=== PATIENT | female | born 1995 | race African-American/Black ===

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

== ENCOUNTER 2017-09-03 22:27 | Emergency (ER) | payer OTHER ==
[~2017-09-03] VITALS: Ht 165.1 cm; Wt 75.0 kg
[~2017-09-03 22:27] MED LIST: IBUP1TAB7 PO
[2017-09-03 22:28] VITALS: BP 127/76; PULSE 87; RESP 16; TEMP 98.2; O2SAT 98
[2017-09-04] MEDS ORDERED: IBUPROFEN 600 MG TAB PO ONE
--- NOTE | 2017-09-04 00:01 | RADRPT ---
EXAM DATE/TIME: 09/03/2017 23:51 [facility] COMPARISON: No previous studies available for comparison. INDICATIONS : Left sided chest pain MEDICAL HISTORY : None. SURGICAL HISTORY : None. ENCOUNTER: Initial ACUITY: 1 day PAIN SCORE: 7/10 LOCATION: Bilateral chest FINDINGS: A single view of the chest demonstrates the lungs to be symmetrically aerated without evidence of mas s, infiltrate or effusion. The cardiomediastinal contours are unremarkable. Osseous structures are intact. CONCLUSION: 1. No acute cardiopulmonary disease. Vahid Killian MD on September 03, 2017 at 23:59 Board Certified Radiologist. This report was verified electronically.
--- NOTE | 2017-09-04 00:08 | PD ---
HPI Chief Complaint: Chest Pain Time Seen by Provider: 23:44 Travel History International Travel<30 days: No Contact w/Intl Traveler<30days: No Traveled to known affect area: No History of Present Illness HPI 21yo F with no significant PMH presents to the ED with c/o left sided chest pain since 9:30pm today. Said she has been having intermittent chest pain for 1 year. Pain is crushing and constant, worst when you press on it. Denies any fever, sob, n/v, abdominal pain, focal weakness or numbness. Denies any drugs or cig smoking. Said she has been to multiple EDs before for this and they cannot find out what is wrong with her. Said her grandmother dies in late 40s or early 50s from heart problem. PFSH Past Medical History Medical History: Denies Significant Hx Diminished Hearing: No Immunizations Current: Yes ?: Unknown Past Surgical History Surgical History: No Previous Surgery Social History Alcohol Use: Yes (SOCIALLY) Tobacco Use: No Substance Use: No Allergies-Medications (Allergen,Severity, Reaction): Coded Allergies: No Known Allergies (Unverified Adverse Reaction, Unknown, 09/03/17) Reported Meds & Prescriptions Reported Meds & Active Scripts Active No Active Prescriptions or Reported Medications Review of Systems Except as stated in HPI: all other systems reviewed are Neg Physical Exam Narrative GENERAL: 21yo F not in distress. SKIN: Focused skin assessment warm/dry. HEAD: Atraumatic. Normocephalic. EYES: Pupils equal and round. No scleral icterus. No injection or drainage. ENT: No nasal bleeding or discharge. Mucous membranes pink and moist. NECK: Trachea midline. No JVD. CARDIOVASCULAR: Regular rate and rhythm. No murmur appreciated. RESPIRATORY: No accessory muscle use. Clear to auscultation. Breath sounds equal bilaterally. CHEST WALL: +TTP left chest. No rash. GASTROINTESTINAL: Abdomen soft, non-tender, nondistended. MUSCULOSKELETAL: No obvious deformities. No clubbing. No cyanosis. No edema. NEUROLOGICAL: Awake and alert. No obvious cranial nerve deficits. Motor grossly within normal limits. Normal speech. PSYCHIATRIC: Appropriate mood and affect; insight and judgment normal. Data Data Last Documented VS Vital Signs Date Time Temp Pulse Resp B/P (MAP) Pulse Ox O2 Delivery O2 Flow Rate FiO2 09/04/17 00:13 75 16 106/67 (80) 99 Room Air 09/03/17 22:28 98.2 Orders Orders Electrocardiogram (09/03/17 ) Complete Blood Count With Diff (09/03/17 23:36) Chest, Single Ap (09/03/17 ) Ed Urine Pregnancytest Poc (09/03/17 23:36) Iv Access Insert/Monitor (09/03/17 23:36) Ecg Monitoring (09/03/17 23:36) Thyroid Stimulating Hormone (09/03/17 23:44) Troponin I (09/03/17 23:44) Ibuprofen (Motrin) (09/04/17 00:00) Comprehensive Metabolic Panel (09/03/17 23:35) Labs Laboratory Tests Test 09/03/17 23:35 White Blood Count 13.2 TH/MM3 Red Blood Count 5.05 MIL/MM3 Hemoglobin 13.5 GM/DL Hematocrit 40.1 % Mean Corpuscular Volume 79.5 FL Mean Corpuscular Hemoglobin 26.7 PG Mean Corpuscular Hemoglobin Concent 33.5 % Red Cell Distribution Width 14.2 % Platelet Count 277 TH/MM3 Mean Platelet Volume 9.6 FL Neutrophils (%) (Auto) 64.8 % Lymphocytes (%) (Auto) 25.6 % Monocytes (%) (Auto) 7.1 % Eosinophils (%) (Auto) 1.3 % Basophils (%) (Auto) 1.2 % Neutrophils # (Auto) 8.6 TH/MM3 Lymphocytes # (Auto) 3.4 TH/MM3 Monocytes # (Auto) 0.9 TH/MM3 Eosinophils # (Auto) 0.2 TH/MM3 Basophils # (Auto) 0.2 TH/MM3 CBC Comment DIFF FINAL Differential Comment Blood Urea Nitrogen 9 MG/DL Creatinine 0.82 MG/DL Random Glucose 91 MG/DL Total Protein 7.9 GM/DL Albumin 3.8 GM/DL Calcium Level 8.5 MG/DL Alkaline Phosphatase 80 U/L Aspartate Amino Transf (AST/SGOT) 17 U/L Alanine Aminotransferase (ALT/SGPT) 20 U/L Total Bilirubin 0.4 MG/DL Sodium Level 140 MEQ/L Potassium Level 3.4 MEQ/L Chloride Level 108 MEQ/L Carbon Dioxide Level 26.5 MEQ/L Anion Gap 6 MEQ/L Estimat Glomerular Filtration Rate 109 ML/MIN Troponin I LESS THAN 0.02 NG/ML Thyroid Stimulating Hormone 3rd Gen 0.955 uIU/ML [facility] Medical Decision Making Medical Screen Exam Complete: Yes Emergency Medical Condition: Yes Interpretation(s) EKG: NSR 72bpm. Normal axis. LVH. No ST segment elevation or depression. TWI III, V2. Differential Diagnosis Anxiety vs. musculoskeletal pain vs. GERD Narrative Course 21yo F with atypical chest pain. Labs reviewed, WBC 13.2. Normal H/H. Troponin negative. TSH normal. CXR negative. Vital signs normal. Pt given ibuprofen which helped with pain. Pt has been having this pain for 1 year with multiple negative work ups. Will have pt follow up as outpatient. Return precautions given. Diagnosis Primary Impression: Atypical chest pain Patient Instructions: General Instructions Departure Forms: Tests/Procedures Additional Instructions: Please follow up with your primary care physician in 3-7 days. Return precautions given. Med/Other Pt SpecificInfo: Prescription(s) given Scripts Ibuprofen (Ibuprofen) 400 Mg Tab 400 MG PO Q8H Y for PAIN SCALE 1 TO 4, #20 TAB 0 Refills Prov: Emerita Castanon DO 09/04/17 Disposition: 01 DISCHARGE HOME Condition: Stable Emerita Castanon DO Sep 04, 2017 00:08
[2017-09-04 00:13] VITALS: BP 106/67; PULSE 75; RESP 16; O2SAT 99
[2017-09-04 00:22] LABS: AUTOMATED NEUTROPHIL # 8.6 TH/MM3 (1.8-7.7); BASOPHIL # 0.2 TH/MM3 (0-0.2); BASOPHIL % 1.2 % (0.0-2.0); EOSINOPHIL # 0.2 TH/MM3 (0-0.4); EOSINOPHIL % 1.3 % (0.0-4.0); HEMATOCRIT 40.1 % (35.0-46.0); HEMOGLOBIN 13.5 GM/DL (11.6-15.3); LYMPH % 25.6 % (9.0-44.0); LYMPHOCYTE # 3.4 TH/MM3 (1.0-4.8); MEAN CELL VOLUME 79.5 FL (80.0-100.0); MEAN CORPUSCULAR HEMOGLOBIN 26.7 PG (27.0-34.0); MEAN CORPUSCULAR HGB CONC 33.5 % (32.0-36.0); MEAN PLATELET VOLUME 9.6 FL (7.0-11.0); MONO % 7.1 % (0.0-8.0); MONOCYTE # 0.9 TH/MM3 (0-0.9); NEUT % 64.8 % (16.0-70.0); PLATELET COUNT 277 TH/MM3 (150-450); RED BLOOD COUNT 5.05 MIL/MM3 (4.00-5.30); RED CELL DISTRIBUTION WIDTH 14.2 % (11.6-17.2); WHITE BLOOD COUNT 13.2 TH/MM3 (4.0-11.0)
[2017-09-04 00:41] LABS: ALKALINE PHOSPHATASE 80 U/L (45-117); TOTAL BILIRUBIN ADULT 0.4 MG/DL (0.2-1.0); TOTAL PROTEIN 7.9 GM/DL (6.4-8.2); TROPONIN I LESS THAN 0.02 NG/ML (0.02-0.05)
[2017-09-04 00:43] LABS: ALBUMIN 3.8 GM/DL (3.4-5.0); ALT (GPT) 20 U/L (9-42); AST (GOT) 17 U/L (16-38); BICARBONATE 26.5 MEQ/L (21.0-32.0); BLOOD UREA NITROGEN 9 MG/DL (7-18); CALCIUM 8.5 MG/DL (8.5-10.1); CHLORIDE 108 MEQ/L (98-107); CREATININE 0.82 MG/DL (0.50-1.00); GLOMERULAR FILTRATION RATE 109 ML/MIN (>89); GLUCOSE,RANDOM 91 MG/DL (74-106); SODIUM (NA) 140 MEQ/L (136-145)
[2017-09-04 01:00] VITALS: BP 106/51
[2017-09-04] MEDS ORDERED: IBUP1TAB5 PO (01:25)
--- NOTE | 2017-09-04 08:07 | EKG ---
Date Performed: 09/03/2017 Time Performed: 22:57:12 PTAGE: 21 years EKG: Sinus rhythm WITH SINUS ARRHYTHMIA NORMAL ECG NO PREVIOUS TRACING DOCTOR: Raymundo Grijalva Interpretating Date/Time 09/04/2017 08:06:45
== END 2017-09-04 01:45 | disposition home or self-care (01) ==
LOC: NEPC 22:27
DX: R07.89 Other chest pain (principal)
CPT/HCPCS: 71045; 80053; 84443; 84484; 84703; 85025; 93005; 99285